=== PATIENT | female | born 1950 | race Caucasian/White ===

== ENCOUNTER 2020-05-15 15:59 | Inpatient (IN) | payer MEDICARE, OTHER ==
[~2020-05-15] VITALS: Ht 165.1 cm; Wt 81.2 kg
--- NOTE | 2020-05-15 16:00 | NUR ---
PT BIBA RA81 From Home "Cough/SOB/fever/chills/weak Dx w/covid 2wks ago 88% on RA". PT IS AAOX4, NOTED RESPIRATORY DISTRESS, HOOKED TO O2 VIA NC AT 6LPM, HOOKED TO FACE BURLER, KEPT RESTED AND COMFORTABLE. WILL CONTINUE TO MONITOR.
--- NOTE | 2020-05-15 16:05 | NUR ---
AT BEDSIDE FOR EVAL.
--- NOTE | 2020-05-15 16:10 | NUR ---
IV LINE ESTABLISHED BLOOD DRAWN AND SENT TO LAB.
--- NOTE | 2020-05-15 16:23 | NUR ---
[place] [facility] AT BEDSIDE FOR XRAY.
[2020-05-15] MEDS ORDERED: CEFTRIAXONE 1GM BAG (ER ONLY) 50 ML IV ONE (16:24)
[2020-05-15] MEDS ORDERED: DEXAMETHASONE SOD PHOSPHATE 10 MG/ML VIAL ONE (16:24)
[2020-05-15] MEDS ORDERED: CEFTRIAXONE 1 G in IV D5W 50 ML IV ONE (16:30)
[2020-05-15] MEDS ORDERED: AZITHROMYCIN 500 MG in IV D5W 250 ML IV ONE (16:30)
[2020-05-15] MEDS ORDERED: DEXAMETHASONE SOD PHOSPHATE 10 MG/ML VIAL IV ONE (16:30)
[2020-05-15 16:35] LABS: BASOPHILS % (AUTO) 0.1 % (0.0-2.0); HEMATOCRIT 41 % (33-45); HEMOGLOBIN 13.8 g/dL (11.5-14.8); LYMPHOCYTES # (AUTO) 0.8 /CMM (0.8-4.8); LYMPHOCYTES % (AUTO) 6.3 % (20.0-44.0); MEAN CORPUSCULAR HGB CONC 34 g/dl (31.0-36.0); MEAN CORPUSCULAR VOLUME 90 fL (82-100); MONOCYTES # (AUTO) 0.7 /CMM (0.1-1.30); MONOCYTES % (AUTO) 5.3 % (2.0-12.0); NEUTROPHILS # (AUTO) 11.6 /CMM (1.8-8.9); NEUTROPHILS % (AUTO) 88.3 % (43.0-81.0); PLATELET COUNT (AUTO) 283 /CMM (150-450); RED BLOOD CELL COUNT(AUTO) 4.54 MIL/uL (4.0-5.2); WHITE BLOOD COUNT (AUTO) 13.2 K/uL (4.3-11.0)
[2020-05-15] MEDS ORDERED: AMLO-213 PO (16:36)
[2020-05-15] MEDS ORDERED: LOSA1TAB15 PO (16:36)
[2020-05-15 16:53] LABS: ABG BASE EXCESS -4.4 mmol/L; ABG OXYGEN SATURATION 92.6 % (92.0-98.5); ABG PCO2 22.3 mmHg (35.0-45.0); ABG PH 7.494 (7.350-7.450); ABG PO2 63.6 mmHg (75.0-100.0); AaDO2 210.3 mmHg; COHb 0.5 % (0.5-1.5); MetHb 0.3 % (0.0-1.5); O2Hb 91.9 % (94.0-97.0); SITE, ABG Right Radial; VENT MODE, BG Nasal Cannula
[2020-05-15 17:00] LABS: CALCIUM, SERUM 8.4 mg/dL (8.5-10.1); CARBON DIOXIDE 22 mmol/L (21-32); CHLORIDE 100 mmol/L (98-107); GLUCOSE 141 mg/dL (74-106); SODIUM SERUM 135 mmol/L (136-145); UREA NITROGEN, BLOOD 18 mg/dL (7-18)
[2020-05-15 17:01] LABS: CREATINE KINASE, TOTAL 75 U/L (26-192); FERRITIN 820 ng/mL (8-388)
--- NOTE | 2020-05-15 17:02 | NUR ---
COVID SPECIMEN OBTAINED AND SENT TO LAB.
[2020-05-15 17:06] LABS: ALANINE AMINOTRANSFERASE 73 U/L (12-78); ALBUMIN 2.4 g/dL (3.4-5.0); ALKALINE PHOSPHATASE 24 U/L (46-116); ASPARTATE AMINOTRANSFERASE 55 U/L (15-37); BILIRUBIN,DIRECT 0.1 mg/dL (0.0-0.2); BILIRUBIN,TOTAL 0.5 mg/dL (0.2-1.0); TOTAL PROTEIN, SERUM 7.1 g/dL (6.4-8.2)
[2020-05-15 17:50] LABS: D-DIMER 1.61 mg/L(FEU (0.17-0.50)
--- NOTE | 2020-05-15 18:01 | NUR ---
received a call from the lab regarding covid 19 result "positive". notified
[2020-05-15] MEDS ORDERED: IV NS 0.9% 250 ML IV ONE (18:14)
[2020-05-15] MEDS ORDERED: IOHEXOL-350 100 ML VIAL IV ONE (18:14)
--- NOTE | 2020-05-15 18:20 | NUR ---
PT IS WHEELED TO CT SCAN ELISABETH PYLE.
[2020-05-15] MEDS ORDERED: MAG HYDROX/AL HYDROX/SIMETH 30 ML UDC PO PRN (19:00)
[2020-05-15] MEDS ORDERED: Z GUARD REMEDY 2 OZ OINT TP PRN (19:00)
[2020-05-15] MEDS ORDERED: HYDROCODONE/APAP 5/325MG TABLET PO PRN (19:00)
[2020-05-15] MEDS ORDERED: ZOLPIDEM TARTRATE 5 MG TABLET PO PRN (19:00)
[2020-05-15] MEDS ORDERED: ONDANSETRON HCL/PF 4 MG/2 ML VIAL IVP PRN (19:00)
[2020-05-15] MEDS ORDERED: MAGNESIUM HYDROXIDE 30 ML UDC PO PRN (19:00)
[2020-05-15] MEDS ORDERED: ACETAMINOPHEN 325 MG TABLET PO PRN (19:00)
--- NOTE | 2020-05-15 19:28 | NUR ---
Craig hernandes in [facility] - 05/15/20 at 1928 by FLOYD TOOK OVER PT CARE. PT REMAINS ON HIGH FLOW 40L/MIN 31C. WILL CONTINUE TO MONITOR.
--- NOTE | 2020-05-15 19:29 | NUR ---
TOOK OVER PT CARE. PT REMAINS ON HIGH FLOW 40L/MIN 31C. WILL CONTINUE TO MONITOR.
[2020-05-15] MEDS ORDERED: LOSARTAN POTASSIUM 50 MG TABLET ONE (19:55)
[2020-05-15] MEDS ORDERED: AMLODIPINE BESYLATE 10 MG TABLET ONE (19:55)
[2020-05-15] MEDS ORDERED: REMDESIVIR (CHARGED) 200 MG, *LOADING DOSE 1 EA in IV NS 0.9% 210 ML IV ONE (20:00)
[2020-05-15] MEDS: AMLODIPINE BESYLATE 10 MG TABLET PO SCH (20:01)
[2020-05-15] MEDS: LOSARTAN POTASSIUM 50 MG TABLET PO SCH (20:01)
[2020-05-15] MEDS ORDERED: ENOXAPARIN SODIUM 40 MG/0.4 ML DISP.SYRIN SQ SCH (21:00)
[2020-05-15] MEDS ORDERED: ENOXAPARIN SODIUM 40 MG/0.4 ML DISP.SYRIN SQ ONE (21:30)
[2020-05-15 22:10] LABS: ABG BASE EXCESS -4.5 mmol/L; ABG OXYGEN SATURATION 93.8 % (92.0-98.5); ABG PCO2 25.4 mmHg (35.0-45.0); ABG PH 7.458 (7.350-7.450); ABG PO2 69.9 mmHg (75.0-100.0); AaDO2 617.7 mmHg; MetHb 0.4 % (0.0-1.5); O2Hb 93.4 % (94.0-97.0); SITE, ABG Right Radial; VENT MODE, BG HFNC 60L/100%
--- NOTE | 2020-05-15 22:13 | NUR ---
RT AT BEDSIDE. FIO2 CHANGED FROM 85% TO 100%. PT SAT 96%. VSS.
[2020-05-15 23:17] LABS: C-REACTIVE PROTEIN 40.1 mg/dL (0.0-0.9)
--- NOTE | 2020-05-16 01:11 | NUR ---
PT RESTING COMFORTABLY, VSS.
--- NOTE | 2020-05-16 04:05 | NUR ---
PT RESTING COMFORTABLY. VSS.
[2020-05-16 04:39] LABS: BASOPHILS % (AUTO) 0.1 % (0.0-2.0); HEMATOCRIT 39 % (33-45); HEMOGLOBIN 13.2 g/dL (11.5-14.8); LYMPHOCYTES # (AUTO) 0.7 /CMM (0.8-4.8); LYMPHOCYTES % (AUTO) 8.4 % (20.0-44.0); MEAN CORPUSCULAR HGB CONC 34 g/dl (31.0-36.0); MEAN CORPUSCULAR VOLUME 90 fL (82-100); MONOCYTES # (AUTO) 0.5 /CMM (0.1-1.30); MONOCYTES % (AUTO) 5.7 % (2.0-12.0); NEUTROPHILS # (AUTO) 7.7 /CMM (1.8-8.9); NEUTROPHILS % (AUTO) 85.8 % (43.0-81.0); PLATELET COUNT (AUTO) 276 /CMM (150-450); RED BLOOD CELL COUNT(AUTO) 4.29 MIL/uL (4.0-5.2); WHITE BLOOD COUNT (AUTO) 8.9 K/uL (4.3-11.0)
[2020-05-16 05:03] LABS: B-TYPE NATRIURETIC PEPTIDE 300 PG/ML (0-125); CALCIUM, SERUM 8.5 mg/dL (8.5-10.1); CARBON DIOXIDE 23 mmol/L (21-32); CHLORIDE 102 mmol/L (98-107); CREATININE 0.9 mg/dL (0.6-1.3); GLUCOSE 146 mg/dL (74-106); MAGNESIUM 2.3 mg/dL (1.8-2.4); POTASSIUM 4.6 mmol/L (3.5-5.1); SODIUM SERUM 136 mmol/L (136-145); UREA NITROGEN, BLOOD 18 mg/dL (7-18)
[2020-05-16 05:10] LABS: CHOLESTEROL 179 mg/dL (<200); CREATINE KINASE, TOTAL 62 U/L (26-192); FERRITIN 824 ng/mL (8-388); HDL CHOLESTEROL 14 mg/dL (40-60); LDL 132 mg/dL (0-99); THYROID STIMULATING HORMONE 0.513 uIU/mL (0.358-3.74); TRIGLYCERIDES 165 mg/dL (30-150)
[2020-05-16 05:17] LABS: D-DIMER 1.3 mg/L(FEU (0.17-0.50)
--- NOTE | 2020-05-16 06:53 | NUR ---
PT PROVIDED WITH BED MORFIN, SAT 97%. VITALS STABLE.
--- NOTE | 2020-05-16 07:26 | NUR ---
ENDORSEMENT RECEIVED FROM DNEISE ALCAZAR FOR IRIS
[2020-05-16] MEDS: LOSARTAN POTASSIUM 50 MG TABLET PO SCH (09:00)
[2020-05-16] MEDS: AMLODIPINE BESYLATE 10 MG TABLET PO SCH (09:00)
[2020-05-16] MEDS ORDERED: DEXAMETHASONE SOD PHOSPHATE 10 MG/ML VIAL ONE (09:09)
[2020-05-16] MEDS: DEXAMETHASONE SOD PHOSPHATE 10 MG/ML VIAL IV SCH (09:18)
[2020-05-16 10:00] LABS: ALBUMIN 2.2 g/dL (3.4-5.0); BILIRUBIN,DIRECT 0.2 mg/dL (0.0-0.2); BILIRUBIN,TOTAL 0.4 mg/dL (0.2-1.0); TOTAL PROTEIN, SERUM 6.7 g/dL (6.4-8.2)
[2020-05-16] MEDS ORDERED: ENOXAPARIN SODIUM 40 MG/0.4 ML DISP.SYRIN SQ ONE (10:28)
--- NOTE | 2020-05-16 10:36 | NUR ---
RT AT BEDSIDE, REMOVED NRB, PATIENT O2 SAT ON HIHGFLOW O2 AT 60LPM AND 100% O2 AT 93%.
[2020-05-16] MEDS: ENOXAPARIN SODIUM 40 MG/0.4 ML DISP.SYRIN SQ SCH ×2 (10:39→17:10)
--- NOTE | 2020-05-16 11:09 | NUR ---
REPORT GIVEN TO CRISTIAN ALCAZAR OF [facility]
--- NOTE | 2020-05-16 12:10 | NUR ---
RN OPENING N0TES RECEIVED PT FROM ER VIA LASHANDA. AWAKE, A/O X4. HF 60L, FIO2 100% SATURATING @93%. WITH NON PRODUCTIVE COUGH. SKIN IS INTACT. IV ACCESS ON R AC #18 INTACT, PATENT AND FLUSHED. REFUSED TO CHANGE INTO HOSPITAL GOWN. BELONGINGS LIST SIGNED. NO PAIN REPORTED AT TIME. PLACED TO BED, LOCKED AND AT LOWEST POSITION. CALL LIGHT WITHIN REACH. HOB ELEVATED. BED ALARM ON. WILL CONTINUE TO MONITOR.
[2020-05-16 12:30] VITALS: BP 132/93
[2020-05-16 16:00] VITALS: BP 125/79
[2020-05-16] MEDS ORDERED: CEFTRIAXONE 1 G in IV D5W 50 ML IV SCH (16:00)
[2020-05-16] MEDS ORDERED: AZITHROMYCIN 500 MG in IV D5W 250 ML IV SCH (17:00)
--- NOTE | 2020-05-16 18:51 | NUR ---
RN CLOSING N0TES PT RESTING IN BED. HF 60L, FIO2 100% SATURATING @93%. WITH NON PRODUCTIVE COUGH. SKIN IS INTACT. IV ACCESS INTACT, PATENT AND FLUSHED. NO PAIN REPORTED AT TIME. NEEDS ATTENDED. NO SIGNIFICANT CHANGES. SAFETY MEAUSRES IN PLACE, BED LOCKED AND AT LOWEST POSITION. CALL LIGHT WITHIN REACH. HOB ELEVATED. BED ALARM ON. WILL ENDORSE TO NIGHT NURSE FOR IRIS.
[2020-05-16 19:05] LABS: C-REACTIVE PROTEIN 26.5 mg/dL (0.0-0.9)
--- NOTE | 2020-05-16 19:30 | NUR ---
RECEIVED PATIENT IN BED, A/OX4 BREATHING EVEN AND UNLABORED,ABLE TO VERBALIZED NEEDS ON NON - REBREATHER MASK AND HIGH FLOW NC, 60L, 100%FIO2, SPO2 IS 93%, , NORMAL SINUS RHYTHM ON TELE-MONITOR WITH HR 60-80S, RIGHT AC IV LINES PATENT ,INTACT AND FLUSHED , SAFETY MEASURES IN PLACE, CALL LIGHT IN REACH, HOB ELEVATED, WILL CONT TO MONITOR .
[2020-05-16] MEDS: REMDESIVIR (CHARGED) 100 MG in IV NS 0.9% 100 ML IV SCH (19:57)
[2020-05-16 20:00] VITALS: BP 129/75
[2020-05-16] MEDS ORDERED: REMDESIVIR (CHARGED) 100 MG in IV NS 0.9% 230 ML IV SCH (20:00)
--- NOTE | 2020-05-16 20:10 | NUR ---
PT COMPLAINING OF HEADACHE DUE TO HIGH OXYGEN DELIVERY FROM THE HIGH FLOW INFORMED RT AND WE LOWER IT DOWN TO 35L FIO2 100% VIA HIGH FLOW SPO2 NOW IS 92% SHE VERBALIZED THAT ITS MORE COMFORTABLE NOW WILL CONT TO MONITOR THE PT
--- NOTE | 2020-05-16 23:00 | NUR ---
PT IS COUGHING A LOT REPORTED IT TO CORBIN MORA SKI LIFT ATTENDANT WITH ORDER OF ROBITUSSIN 10CC Q6PRN NOTED AND CARRIED OUT
[2020-05-17] VITALS: BP 131/77
[2020-05-17] MEDS: GUAIFENESIN/CODEINE 10 ML UDC PO PRN ×2 (03:34→16:52)
[2020-05-17 04:00] VITALS: BP 128/75
--- NOTE | 2020-05-17 06:54 | NUR ---
PT ON BED ASLEEP EASY TO WAKE UP A/O X3 STILL ON HIGH FLOW 35L 100% FIO2 AND NON REBREATHER MASK 15L WITH SPO2 97% NO DISTRESS NOTED NO PAIN COMPLAINED NO SIGNIFICANT CHANGES ON CONDITION NOTED ALL NEEDS ATTENDED BED ON LOWEST POSITION AND LOCKED SIDE RAILS UP X2 CALL LIGHT WITHIN REACH WILL ENDORSED TO AM SHIFT NURSE
[2020-05-17 07:01] LABS: HEMATOCRIT 39 % (33-45); HEMOGLOBIN 13.4 g/dL (11.5-14.8); LYMPHOCYTES # (AUTO) 0.7 /CMM (0.8-4.8); LYMPHOCYTES % (AUTO) 7.1 % (20.0-44.0); MEAN CORPUSCULAR HGB CONC 35 g/dl (31.0-36.0); MEAN CORPUSCULAR VOLUME 90 fL (82-100); MONOCYTES # (AUTO) 0.9 /CMM (0.1-1.30); NEUTROPHILS # (AUTO) 8.5 /CMM (1.8-8.9); NEUTROPHILS % (AUTO) 83.9 % (43.0-81.0); PLATELET COUNT (AUTO) 320 /CMM (150-450); RED BLOOD CELL COUNT(AUTO) 4.27 MIL/uL (4.0-5.2); WHITE BLOOD COUNT (AUTO) 10.1 K/uL (4.3-11.0)
[2020-05-17 07:12] LABS: ALBUMIN 2.2 g/dL (3.4-5.0); BILIRUBIN,DIRECT 0.1 mg/dL (0.0-0.2); BILIRUBIN,TOTAL 0.4 mg/dL (0.2-1.0); CALCIUM, SERUM 8.7 mg/dL (8.5-10.1); CREATININE 0.9 mg/dL (0.6-1.3); MAGNESIUM 2.5 mg/dL (1.8-2.4); POTASSIUM 4.5 mmol/L (3.5-5.1); TOTAL PROTEIN, SERUM 6.7 g/dL (6.4-8.2)
--- NOTE | 2020-05-17 07:30 | NUR ---
RN OPENING NOTE: PATIENT RECEIVED IN ROOM IN NO SIGNS OF RESPIRATORY DISTRESS. PATIENT IS ON O2 THERAPY VIA HFNC 35 LPM 100% + NRB 15 LPM TOLERATING WELL. IV ACCESS MAINTAINED INTACT, SECURED AND FLUSHING WELL. ISOLATION PRECAUTIONS MAINTAINED. SAFETY MEASURES IMPLEMENTED, BED LOCKED IN LOWEST POSITION, SIDE RAILS UP, CALL LIGHT WITHIN REACH. WILL CONTINUE TO MONITOR PATIENT AND PROVIDE CARE THROUGHOUT SHIFT.
[2020-05-17 08:00] VITALS: BP 104/62
[2020-05-17] MEDS: AMLODIPINE BESYLATE 10 MG TABLET PO SCH (09:00)
[2020-05-17] MEDS: LOSARTAN POTASSIUM 50 MG TABLET PO SCH (09:00)
[2020-05-17] MEDS: DEXAMETHASONE SOD PHOSPHATE 10 MG/ML VIAL IV SCH (10:10)
[2020-05-17] MEDS: ENOXAPARIN SODIUM 40 MG/0.4 ML DISP.SYRIN SQ SCH ×2 (10:40→16:46)
[2020-05-17 10:53] LABS: CREATINE KINASE, TOTAL 50 U/L (26-192)
--- NOTE | 2020-05-17 11:34 | NUR ---
patient care transferred over to other staff. report given to ariadne.
--- NOTE | 2020-05-17 11:34 | NUR ---
TELE/RN NOTE Received patient resting in bed, A&O x 4, easily arousable to tactile and verbal stimulation. No s/s of pain/discomfort at this time. Breathing even and non-labored on RA, no SOB noted. No respiratory or cardiac distress noted. On tele monitor, reading SR 85. IV access noted on RAC #18, patent and intact, and flushing well. Bed locked to its lowest position, side rails x 2 up, bed alarm on. Will continue with current medical management. Addendum: 05/17/20 at 1846 by TARAN HONG RN CORRECTION: Breathing even and non-labored on HFNC 35 L FIO2 100% + 15 L NRB, saturating 91%.
[2020-05-17 12:00] VITALS: BP 124/70
[2020-05-17 13:11] LABS: FERRITIN 927 ng/mL (8-388)
[2020-05-17 16:00] VITALS: BP 139/78
--- NOTE | 2020-05-17 16:52 | NUR ---
TELE/RN NOTE Administered robitussin PRN as ordered for persistent dry cough.
--- NOTE | 2020-05-17 18:44 | NUR ---
TELE/RN CLOSING NOTE Patient watching TV in bed, A&O x 4, easily arousable to tactile and verbal stimulation. All needs met and attended to. No s/s of pain/discomfort at this time. Breathing even and non-labored on HFNC 35 L FIO2 100% + 15 L NRB, saturating 91-93%. No respiratory or cardiac distress noted. On tele monitor, reading SR 74. IV access noted on RAC #18, patent and intact, and flushing well. Fall precautions maintained. Will endorse to sales representative printing supplies nurse.
[2020-05-17 20:00] VITALS: BP 121/72
[2020-05-17] MEDS: REMDESIVIR (CHARGED) 100 MG in IV NS 0.9% 100 ML IV SCH (20:32)
[2020-05-18] VITALS: BP 118/55
[2020-05-18 04:00] VITALS: BP 138/80
[2020-05-18 07:22] LABS: BASOPHILS % (AUTO) 0.1 % (0.0-2.0); EOSINOPHILS % (AUTO) 0.4 % (0.0-6.0); HEMATOCRIT 40 % (33-45); HEMOGLOBIN 13.5 g/dL (11.5-14.8); LYMPHOCYTES # (AUTO) 0.9 /CMM (0.8-4.8); LYMPHOCYTES % (AUTO) 9.8 % (20.0-44.0); MEAN CORPUSCULAR HGB CONC 34 g/dl (31.0-36.0); MEAN CORPUSCULAR VOLUME 91 fL (82-100); MONOCYTES # (AUTO) 0.7 /CMM (0.1-1.30); MONOCYTES % (AUTO) 8.1 % (2.0-12.0); NEUTROPHILS # (AUTO) 7.3 /CMM (1.8-8.9); NEUTROPHILS % (AUTO) 81.6 % (43.0-81.0); PLATELET COUNT (AUTO) 333 /CMM (150-450)
--- NOTE | 2020-05-18 07:30 | NUR ---
CHAIN TENDER NOTES PT IN BED, AWAKE, ALERT AND ORIENTED, NO COMPLAINT OF PAIN OR ANY DISCOMFORT, NOT IN DISTRESS, CALL LIGHT WITHIN REACH, NEEDS ATTENDED.
[2020-05-18 07:58] LABS: ALBUMIN 2.3 g/dL (3.4-5.0); BILIRUBIN,DIRECT 0.1 mg/dL (0.0-0.2); BILIRUBIN,TOTAL 0.4 mg/dL (0.2-1.0); CALCIUM, SERUM 8.6 mg/dL (8.5-10.1); POTASSIUM 4.4 mmol/L (3.5-5.1); TOTAL PROTEIN, SERUM 6.8 g/dL (6.4-8.2)
[2020-05-18 08:00] VITALS: BP 133/70
[2020-05-18 08:09] LABS: C-REACTIVE PROTEIN 9.8 mg/dL (0.0-0.9)
[2020-05-18] MEDS: DEXAMETHASONE SOD PHOSPHATE 10 MG/ML VIAL IV SCH (08:26)
[2020-05-18] MEDS: AMLODIPINE BESYLATE 10 MG TABLET PO SCH (08:26)
[2020-05-18] MEDS: LOSARTAN POTASSIUM 50 MG TABLET PO SCH (08:26)
[2020-05-18] MEDS: ENOXAPARIN SODIUM 40 MG/0.4 ML DISP.SYRIN SQ SCH ×2 (08:34→16:07)
[2020-05-18] MEDS: GUAIFENESIN/CODEINE 10 ML UDC PO PRN (10:19)
[2020-05-18 12:00] VITALS: BP 121/69
--- NOTE | 2020-05-18 12:00 | NUR ---
PROCESS IMPROVEMENT SPECIALIST NOTES PT IN BED, RESTING, EASY TO AROUSE, ALERT AND ORIENTED, NO COMPLAINT AT THIS TIME, CALL LIGHT WITHIN REACH.
[2020-05-18 16:00] VITALS: BP 105/58
--- NOTE | 2020-05-18 18:30 | NUR ---
SEO CONSULTANT NOTES PT IN BED, RESTING, NO COMPLAINT OF PAIN OR ANY DISCOMFORT, NO SOB NOTED, ON HIGH FLOW O2 WITH NRB MASK, WITH O2 SAT OF 95%, PM MEDS GIVEN, OFFERED PM CARE BUT PT REFUSED, STATED THAT SHE IS OK FOR NOW, CALL LIGHT WITHIN EASY REACH.
[2020-05-18 20:00] VITALS: BP 106/55
[2020-05-18] MEDS: REMDESIVIR (CHARGED) 100 MG in IV NS 0.9% 100 ML IV SCH (20:04)
[2020-05-19] VITALS: BP 122/68
[2020-05-19 04:00] VITALS: BP 110/69
[2020-05-19 07:09] LABS: BASOPHILS % (AUTO) 0.1 % (0.0-2.0); EOSINOPHILS % (AUTO) 1.1 % (0.0-6.0); HEMATOCRIT 38 % (33-45); HEMOGLOBIN 12.9 g/dL (11.5-14.8); LYMPHOCYTES # (AUTO) 0.7 /CMM (0.8-4.8); LYMPHOCYTES % (AUTO) 10.1 % (20.0-44.0); MEAN CORPUSCULAR HGB CONC 34 g/dl (31.0-36.0); MEAN CORPUSCULAR VOLUME 91 fL (82-100); MONOCYTES # (AUTO) 0.6 /CMM (0.1-1.30); MONOCYTES % (AUTO) 8.1 % (2.0-12.0); NEUTROPHILS # (AUTO) 5.7 /CMM (1.8-8.9); NEUTROPHILS % (AUTO) 80.6 % (43.0-81.0); PLATELET COUNT (AUTO) 312 /CMM (150-450); RED BLOOD CELL COUNT(AUTO) 4.17 MIL/uL (4.0-5.2)
--- NOTE | 2020-05-19 07:46 | NUR ---
PT RECEIVED IN BED, SLEEPING BUT EASILY AROUSABLE. O2 SAT 95% NO SOB ON 35L/100% HF + 15L NRB. PT IS ALERT AND ORIENTEDX4. PT SKIN INTACT, BEDREST. PT RAC #18 HL. ALL SAFETY MEASURES IN PLACE. WILL CONTINUE TO MONITOR
[2020-05-19 08:00] VITALS: BP 113/60
[2020-05-19] MEDS: DEXAMETHASONE SOD PHOSPHATE 10 MG/ML VIAL IV SCH (08:00)
[2020-05-19] MEDS: LOSARTAN POTASSIUM 50 MG TABLET PO SCH (08:01)
[2020-05-19] MEDS: AMLODIPINE BESYLATE 10 MG TABLET PO SCH (08:01)
[2020-05-19] MEDS: ENOXAPARIN SODIUM 40 MG/0.4 ML DISP.SYRIN SQ SCH ×2 (08:02→17:34)
[2020-05-19 08:11] LABS: BILIRUBIN,DIRECT 0.1 mg/dL (0.0-0.2); BILIRUBIN,TOTAL 0.4 mg/dL (0.2-1.0); CALCIUM, SERUM 8.5 mg/dL (8.5-10.1); CREATININE 1.1 mg/dL (0.6-1.3); POTASSIUM 4.7 mmol/L (3.5-5.1); TOTAL PROTEIN, SERUM 6.2 g/dL (6.4-8.2)
--- NOTE | 2020-05-19 10:53 | NUR ---
15L NRB REMOVED BY RT. PT SAT 86-89%. RT AWARE AND ADJUST HF TO 35L/90% WITH NO MASK. O2 SAT NOW 94-05%.
[2020-05-19 12:00] VITALS: BP 95/46
--- NOTE | 2020-05-19 13:16 | NUR ---
PT ABLE TO PIVOT FROM BED TO CHAIR PT AND FAMILY REQUESTED, O2 SAT REMAINS UNCHANGED. PT THEN FOUND TO BE HYPOTENSIVE WITH BP 78/48 SITTING. PT STATES SHE NOW FEELS DIZZY. PT TRANSFERRED BACK TO BED, BP RECHECKED WITH PT SUPINE 95/46, PT INSTRUCTED TO REMAIN BEDREST, AND ENCOURAGED TO DRINK MORE FLUIDS AND EAT MEALS. Addendum: 05/19/20 at 1319 by RYNE HUMMEL RN MD LANDEROS AWARE, NO FURTHER ORDERS
[2020-05-19] MEDS: GUAIFENESIN/CODEINE 10 ML UDC PO PRN ×2 (14:24→20:18)
--- NOTE | 2020-05-19 15:15 | NUR ---
PT HF ADJUSTED TO 30L/75% FIO2, NO NRB MASK, PER RT DAVIDA
[2020-05-19 16:00] VITALS: BP 103/54
--- NOTE | 2020-05-19 18:32 | NUR ---
PT REMAINS IN BED ON HF 30L/75%. PT AOX4. NO NRB MASK. PT O2 SAT 94% NO SIGNS OF RESPIRATORY DISTRESS. PT THIS SHIFT CONSUMED APPROX LESS THAN 50% BREAKFAST, 10% LUNCH/DINNER. MD LANDEROS ORDERS ENSURE WITH MEALS PER PT REQUEST. PT HAS RAC #18 IV HL. PT HAD ONE DOSE ROBITUSSIN FOR COUGH AT 1430. PT HAD 2X VOIDS ON BEDPAN, NO BM THIS SHIFT. ALL SAFETY MEASURES IN [place]. ALL NEEDS TO BE ENDORSED TO ONCOMING RN
--- NOTE | 2020-05-19 19:50 | NUR ---
RN NOTE RECEIVED PT IN BED A/A/O X3. PT IS ON HIGH FLOW 30L, 75% FIO2. NO SOB NOTED, PT IS ON TELE MONITOR SHOWING SR IN 60s. SAFETY MEASURES IN PLACE.
[2020-05-19 20:00] VITALS: BP_SYST 106; BP_SYST 125; BP_DIAS 60; BP_DIAS 65
[2020-05-19] MEDS: REMDESIVIR (CHARGED) 100 MG in IV NS 0.9% 100 ML IV SCH (20:13)
[2020-05-20] VITALS (9 sets, daily range): BP systolic 93–129; BP diastolic 54–73
[2020-05-20 07:07] LABS: BASOPHILS % (AUTO) 0.4 % (0.0-2.0); EOSINOPHILS % (AUTO) 0.8 % (0.0-6.0); HEMATOCRIT 36 % (33-45); HEMOGLOBIN 12.2 g/dL (11.5-14.8); LYMPHOCYTES # (AUTO) 0.9 /CMM (0.8-4.8); LYMPHOCYTES % (AUTO) 10.3 % (20.0-44.0); MEAN CORPUSCULAR HGB CONC 34 g/dl (31.0-36.0); MEAN CORPUSCULAR VOLUME 90 fL (82-100); MONOCYTES # (AUTO) 0.5 /CMM (0.1-1.30); MONOCYTES % (AUTO) 6.4 % (2.0-12.0); NEUTROPHILS # (AUTO) 6.8 /CMM (1.8-8.9); NEUTROPHILS % (AUTO) 82.1 % (43.0-81.0); PLATELET COUNT (AUTO) 302 /CMM (150-450); RED BLOOD CELL COUNT(AUTO) 3.96 MIL/uL (4.0-5.2); WHITE BLOOD COUNT (AUTO) 8.3 K/uL (4.3-11.0)
--- NOTE | 2020-05-20 07:25 | NUR ---
RN NOTE NO ACUTE CHANGES. PT REMAINED STABLE REPORT GIVEN TO INCOMING SHIFT FOR IRIS.
[2020-05-20 07:58] LABS: ALBUMIN 1.9 g/dL (3.4-5.0); BILIRUBIN,DIRECT 0.1 mg/dL (0.0-0.2); BILIRUBIN,TOTAL 0.4 mg/dL (0.2-1.0); CALCIUM, SERUM 8.3 mg/dL (8.5-10.1); CREATININE 0.9 mg/dL (0.6-1.3); POTASSIUM 4.7 mmol/L (3.5-5.1)
[2020-05-20] MEDS: DEXAMETHASONE SOD PHOSPHATE 10 MG/ML VIAL IV SCH (08:29)
--- NOTE | 2020-05-20 08:30 | NUR ---
OUTSIDE SALES ASSOCIATE NOTES PATIENT RECEIVED FROM RN, PATIENT IN BED AT THIS TIME, ALERT AND ORIENTED X 4, TURKISH SPEAKING. ON HIGH FLOW NASAL CANNULA. ON PACKAGING ASSOCIATE. IV ACCESS INTACT AND PATENT, SALINE FLUSH. PATIENT DENIES ANY PAIN OR DISCOMFORT AT THIS TIME. SAFETY PRECAUTIONS IMPLEMENTED WITH BED LOCKED, BILATERAL SIDE RAILS UP, BED ALARM ON, BED IN THE LOWEST POSITION AND CALL LIGHT WITHIN EASY REACH. WILL CONTINUE TO MONITOR.
[2020-05-20] MEDS: ENOXAPARIN SODIUM 40 MG/0.4 ML DISP.SYRIN SQ SCH ×2 (08:31→16:14)
[2020-05-20] MEDS: LOSARTAN POTASSIUM 50 MG TABLET PO SCH (08:38)
[2020-05-20] MEDS: AMLODIPINE BESYLATE 10 MG TABLET PO SCH (08:39)
[2020-05-20] MEDS: ENSURE ENLIVE 237 ML LIQUID (VANILLA) PO SCH ×3 (09:39→17:18)
--- NOTE | 2020-05-20 11:15 | NUR ---
TRUSS DESIGNER NOTES INFORMED DR. ANTUNEZ, HOSPITALIST ABOUT PATIENTS BLOOD PRESSURE BEING ON THE LOWER SIDE AND INFORMED HELD BLOOD PRESSURE MEDS WHICH WERE SCHEDULE THIS MORNING. NO NEW ORDERS MADE AT THIS TIME. WILL CONTINUE TO MONITOR PATIENT.
--- NOTE | 2020-05-20 18:53 | NUR ---
SENIOR BACK END JAVA DEVELOPER NOTES PATIENT IN BED AT THIS TIME RESTING COMFORTABLY, ALERT AND ORIENTED X 4, WELSH SPEAKING. ON HIGH FLOW NASAL CANNULA 30 LITERS. ON ELECTROENCEPHALOGRAPH TECHNOLOGIST. IV ACCESS INTACT AND PATENT, SALINE FLUSH. SKIN KEPT CLEAN AND DRY. MET ALL OF PATIENT'S NEEDS. PATIENT DENIES ANY PAIN OR DISCOMFORT AT THIS TIME. SAFETY PRECAUTIONS IMPLEMENTED WITH BED LOCKED, BILATERAL SIDE RAILS UP, BED ALARM ON, BED IN THE LOWEST POSITION AND CALL LIGHT WITHIN EASY REACH. WILL ENDORSE PLAN OF CARE TO UPCOMING RN.
--- NOTE | 2020-05-20 20:00 | NUR ---
RN NOTE RECEIVED PT IN BED A/A/O X3. ON HIGH FLOW 30 L WITH FIO2 65%,SATING 95%. PT ON TELE MONITOR SHOWING SR WITH HR IN 50s. SAFETY MEASURES IN PLACE.
[2020-05-21] VITALS (8 sets, daily range): BP systolic 99–138; BP diastolic 51–79
--- NOTE | 2020-05-21 07:18 | NUR ---
MS/RN OPENING NOTE RECEIVED PATIENT FROM ROPEMAN NURSE PATIENT A/O X4. PATIENT IN BED AWAKE. NO ACUTE DISTRESS NOTED. ALL SAFETY MEASURES IN PLACE WILL CONTINUE TO MONITOR AND ENSURE SAFETY.
--- NOTE | 2020-05-21 07:29 | NUR ---
RN NOTE NO ACUTE CHANGES DURING MY SHIFT, REPORT GIVEN TO INCOMUNG SHIFT FOR IRIS.
[2020-05-21 08:36] LABS: BASOPHILS % (AUTO) 0.3 % (0.0-2.0); EOSINOPHILS % (AUTO) 0.8 % (0.0-6.0); HEMATOCRIT 38 % (33-45); HEMOGLOBIN 12.9 g/dL (11.5-14.8); LYMPHOCYTES # (AUTO) 0.9 /CMM (0.8-4.8); LYMPHOCYTES % (AUTO) 11.6 % (20.0-44.0); MEAN CORPUSCULAR HGB CONC 34 g/dl (31.0-36.0); MEAN CORPUSCULAR VOLUME 91 fL (82-100); MONOCYTES # (AUTO) 0.6 /CMM (0.1-1.30); MONOCYTES % (AUTO) 7.7 % (2.0-12.0); NEUTROPHILS # (AUTO) 5.9 /CMM (1.8-8.9); NEUTROPHILS % (AUTO) 79.6 % (43.0-81.0); PLATELET COUNT (AUTO) 330 /CMM (150-450); RED BLOOD CELL COUNT(AUTO) 4.22 MIL/uL (4.0-5.2); WHITE BLOOD COUNT (AUTO) 7.4 K/uL (4.3-11.0)
[2020-05-21 08:49] LABS: CALCIUM, SERUM 8.2 mg/dL (8.5-10.1); CREATININE 0.9 mg/dL (0.6-1.3); MAGNESIUM 2.2 mg/dL (1.8-2.4); PHOSPHORUS 2.9 mg/dL (2.5-4.9); POTASSIUM 4.5 mmol/L (3.5-5.1)
[2020-05-21] MEDS: DEXAMETHASONE SOD PHOSPHATE 10 MG/ML VIAL IV SCH (08:54)
[2020-05-21] MEDS: LOSARTAN POTASSIUM 50 MG TABLET PO SCH (08:55)
[2020-05-21] MEDS: AMLODIPINE BESYLATE 10 MG TABLET PO SCH (08:56)
[2020-05-21] MEDS: ENOXAPARIN SODIUM 40 MG/0.4 ML DISP.SYRIN SQ SCH ×2 (08:57→17:39)
[2020-05-21] MEDS: ENSURE ENLIVE 237 ML LIQUID (VANILLA) PO SCH ×3 (08:59→17:59)
[2020-05-21 09:07] LABS: CREATINE KINASE, TOTAL 28 U/L (26-192); FERRITIN 506 ng/mL (8-388)
[2020-05-21 17:32] LABS: C-REACTIVE PROTEIN 8.3 mg/dL (0.0-0.9)
--- NOTE | 2020-05-21 18:00 | NUR ---
MS/RN NOTE COVID TEST WAS TAKEN AND GIVEN TO LAB.
--- NOTE | 2020-05-21 19:00 | NUR ---
RN OPENING NOTE RECEIVED PATIENT IN BED RESTING ALERT ORIENTED X4 VERBALLY RESPONSIVE ABLE TO MAKE NEEDS KNOWN,ON MONITOR FOR COVID POSITIVE DROPLET/CONTACT ISOLATION,ON HIGH FLOW OXYGEN 30L FIO2:60% O2:92-93% IV SITE IS ON RIGHT AC INTACT PATENT,CONTINENT BOWEL/BLADDER CALL LIGHT WITHIN REACH,SAFETY MEASURE IMPLEMENT,CONTINUE TO MONITOR.
--- NOTE | 2020-05-21 19:45 | NUR ---
MS/RN OPENING NOTE PATIENT A/O X4. PATIENT AWAKE IN BED. NO ACUTE DISTRESS NOTED. ALL NEEDS THROUGHOUT THE SHIFT. ALL SAFETY MEASURES IN PLACE WILL ENDORSE TO JOY OPERATOR NURSE.
[2020-05-22] VITALS: BP 117/67
[2020-05-22 04:00] VITALS: BP 129/71
--- NOTE | 2020-05-22 06:30 | NUR ---
RN CLOSING NOTE PATIENT REMAINS ON ALERT ORIENTED X4 VERBALLY RESPONSIVE ON HIGH FLOW OXYGEN 30L FIO2:60% O2:97% NO SOB NOT ACUTE DISTRESS NOTED IV SITE IS ON RIGHT AC INTACT PATENT,KEPT CLEAN AND DRY ALL THE TIME,KEPT COMFORTABLE,KEPT CALL LIGHT WITHIN REACH,ENDORSE NEXT COMING SHIFT FOR CONTINUATION OF CARE.
[2020-05-22 06:36] LABS: BASOPHILS % (AUTO) 0.1 % (0.0-2.0); EOSINOPHILS % (AUTO) 0.7 % (0.0-6.0); HEMATOCRIT 37 % (33-45); HEMOGLOBIN 12.5 g/dL (11.5-14.8); LYMPHOCYTES % (AUTO) 14.2 % (20.0-44.0); MEAN CORPUSCULAR HGB CONC 34 g/dl (31.0-36.0); MEAN CORPUSCULAR VOLUME 90 fL (82-100); MONOCYTES # (AUTO) 0.6 /CMM (0.1-1.30); MONOCYTES % (AUTO) 9.2 % (2.0-12.0); NEUTROPHILS # (AUTO) 5.2 /CMM (1.8-8.9); NEUTROPHILS % (AUTO) 75.8 % (43.0-81.0); PLATELET COUNT (AUTO) 329 /CMM (150-450); RED BLOOD CELL COUNT(AUTO) 4.08 MIL/uL (4.0-5.2); WHITE BLOOD COUNT (AUTO) 6.9 K/uL (4.3-11.0)
[2020-05-22 06:51] LABS: CALCIUM, SERUM 8.4 mg/dL (8.5-10.1); MAGNESIUM 2.2 mg/dL (1.8-2.4); PHOSPHORUS 3.5 mg/dL (2.5-4.9)
--- NOTE | 2020-05-22 07:27 | NUR ---
MS/RN OPENING NOTE RECEIVED PATIENT FROM MEND WORKER NURSE PATIENT IS AWAKE IN BED A/O X4. DENIES ANY PAIN AT THIS TIME. NO ACUTE DISTRESS NOTED. HIFLO OXYGEN 30L FIO2 60% VIA NASAL CANNULA TOLERATING WELL, NO SOB NOTED. SAFETY MEASURES IN PLACE BED LOCKED AND IN LOWEST POSITION, CALL LIGHT WITHIN REACH. WILL CONTINUE TO MONITOR AND ENSURE SAFETY.
[2020-05-22] MEDS: ENSURE ENLIVE 237 ML LIQUID (VANILLA) PO SCH ×3 (07:59→17:04)
[2020-05-22 08:00] VITALS: BP 133/68
[2020-05-22] MEDS: LOSARTAN POTASSIUM 50 MG TABLET PO SCH (08:47)
[2020-05-22] MEDS: AMLODIPINE BESYLATE 10 MG TABLET PO SCH (08:47)
[2020-05-22] MEDS: DEXAMETHASONE SOD PHOSPHATE 10 MG/ML VIAL IV SCH (08:47)
[2020-05-22] MEDS: ENOXAPARIN SODIUM 40 MG/0.4 ML DISP.SYRIN SQ SCH ×2 (08:48→16:06)
[2020-05-22 12:05] VITALS: BP 114/56
--- NOTE | 2020-05-22 15:43 | NUR ---
MS/RN NOTE RT TITRATED FIO2 DOWN TO 50% PATIENT TOLERATING WELL WITH O2 SAT OF 93%
[2020-05-22 16:28] VITALS: BP 111/66
--- NOTE | 2020-05-22 18:37 | NUR ---
MS/RN CLOSING NOTE PATIENT IS AWAKE IN BED A/O X4. DENIES ANY PAIN AT THIS TIME. NO ACUTE DISTRESS NOTED. HIFLO OXYGEN 30L FIO2 50% VIA NASAL CANNULA TOLERATING WELL, NO SOB NOTED. ALL NEEDS MET THROUGHOUT THE SHIFT. SAFETY MEASURES IN PLACE BED LOCKED AND IN LOWEST POSITION, CALL LIGHT WITHIN REACH. WILL ENDORSE TO INSPECTOR PRECISION ASSEMBLY NURSE.
--- NOTE | 2020-05-22 19:20 | NUR ---
RN OPENING NOTE RECEIVED PATIENT IN BED RESTING ALERT ORIENTED X4 VERBALLY RESPONSIVE ABLE TO MAKE NEEDS KNOWN,ON MONITOR FOR COVID POSITIVE DROPLET/CONTACT ISOLATION,ON HIGH FLOW OXYGEN 30L FIO2:50% O2:94-95% IV SITE IS ON RIGHT AC INTACT PATENT,CONTINENT BOWEL/BLADDER CALL LIGHT WITHIN REACH,SAFETY MEASURE IMPLEMENT,BED IN LOW POSITION AND LOCKED,CONTINUE TO MONITOR.
[2020-05-22 20:00] VITALS: BP 102/60
[2020-05-23] VITALS: BP 136/61
[2020-05-23 04:00] VITALS: BP 139/65
--- NOTE | 2020-05-23 06:36 | NUR ---
RN CLOSING NOTE PATIENT REMAINS ON ALERT ORIENTED X4 VERBALLY RESPONSIVE NO SOB NOT ACUTE DISTRESS NOTED ON HIGH FLOW OXYGEN,30 L FIO2 50% O2:96%,IV SITE IS ON RIGHT AC INTACT PATENT,SAFETY MEASURE IMPLEMENTED,KEPT CLEAN AND DRY ALL THE TIME,KEPT COMFORTABLE,KEPT CALL LIGHT WITHIN REACH,ENDORSE NEXT COMING SHIFT FOR CONTINUATION OF CARE.
[2020-05-23 06:52] LABS: BASOPHILS % (AUTO) 0.3 % (0.0-2.0); EOSINOPHILS % (AUTO) 0.8 % (0.0-6.0); HEMATOCRIT 40 % (33-45); HEMOGLOBIN 13.4 g/dL (11.5-14.8); LYMPHOCYTES # (AUTO) 1.2 /CMM (0.8-4.8); LYMPHOCYTES % (AUTO) 15.2 % (20.0-44.0); MEAN CORPUSCULAR HGB CONC 33 g/dl (31.0-36.0); MEAN CORPUSCULAR VOLUME 91 fL (82-100); MONOCYTES # (AUTO) 0.9 /CMM (0.1-1.30); MONOCYTES % (AUTO) 11.5 % (2.0-12.0); NEUTROPHILS # (AUTO) 5.6 /CMM (1.8-8.9); NEUTROPHILS % (AUTO) 72.2 % (43.0-81.0); PLATELET COUNT (AUTO) 339 /CMM (150-450); RED BLOOD CELL COUNT(AUTO) 4.42 MIL/uL (4.0-5.2); WHITE BLOOD COUNT (AUTO) 7.8 K/uL (4.3-11.0)
[2020-05-23 07:30] LABS: CALCIUM, SERUM 8.6 mg/dL (8.5-10.1); POTASSIUM 5.1 mmol/L (3.5-5.1)
--- NOTE | 2020-05-23 07:30 | NUR ---
ms rn received on bed, awake,alert,oriented x4,not in any form of distres, patient on high flow o2, saturating well. denies pain at this time, will monitor patient.
[2020-05-23 08:00] VITALS: BP 94/38
[2020-05-23] MEDS: AMLODIPINE BESYLATE 10 MG TABLET PO SCH (09:00)
[2020-05-23] MEDS: LOSARTAN POTASSIUM 50 MG TABLET PO SCH (09:00)
--- NOTE | 2020-05-23 09:00 | NUR ---
ms soria breakfast served,due meds given, tolerated well.
[2020-05-23] MEDS: DEXAMETHASONE SOD PHOSPHATE 10 MG/ML VIAL IV SCH (09:29)
[2020-05-23] MEDS: ENOXAPARIN SODIUM 40 MG/0.4 ML DISP.SYRIN SQ SCH ×2 (09:31→18:13)
[2020-05-23] MEDS: ENSURE ENLIVE 237 ML LIQUID (VANILLA) PO SCH ×3 (09:39→18:13)
[2020-05-23 16:00] VITALS: BP 106/63
--- NOTE | 2020-05-23 19:00 | NUR ---
ms rn on bed, no distress noted,all needs attended.
--- NOTE | 2020-05-23 19:30 | NUR ---
RECEIVED PATIENT IN BED, A/OX4 BREATHING EVEN AND UNLABORED,ABLE TO VERBALIZED NEEDS ON HIGH FLOW NC, 30L, 40%FIO2, SPO2 IS 93%, , NORMAL SINUS RHYTHM ON TELE-MONITOR WITH HR 60-80S, RIGHT AC IV LINES PATENT ,INTACT AND FLUSHED , SAFETY MEASURES IN PLACE, CALL LIGHT IN REACH, HOB ELEVATED, WILL CONT TO MONITOR .
[2020-05-23 20:00] VITALS: BP 115/60
[2020-05-24] VITALS: BP 141/76
[2020-05-24 04:00] VITALS: BP 117/67
[2020-05-24 06:04] LABS: BASOPHILS % (AUTO) 0.2 % (0.0-2.0); EOSINOPHILS % (AUTO) 0.5 % (0.0-6.0); HEMATOCRIT 38 % (33-45); HEMOGLOBIN 12.7 g/dL (11.5-14.8); LYMPHOCYTES # (AUTO) 1.2 /CMM (0.8-4.8); LYMPHOCYTES % (AUTO) 13.9 % (20.0-44.0); MEAN CORPUSCULAR HGB CONC 34 g/dl (31.0-36.0); MEAN CORPUSCULAR VOLUME 90 fL (82-100); MONOCYTES # (AUTO) 0.9 /CMM (0.1-1.30); MONOCYTES % (AUTO) 10.1 % (2.0-12.0); NEUTROPHILS # (AUTO) 6.5 /CMM (1.8-8.9); NEUTROPHILS % (AUTO) 75.3 % (43.0-81.0); PLATELET COUNT (AUTO) 294 /CMM (150-450); RED BLOOD CELL COUNT(AUTO) 4.19 MIL/uL (4.0-5.2); WHITE BLOOD COUNT (AUTO) 8.6 K/uL (4.3-11.0)
[2020-05-24 06:36] LABS: CALCIUM, SERUM 8.9 mg/dL (8.5-10.1); CREATININE 0.9 mg/dL (0.6-1.3); POTASSIUM 4.7 mmol/L (3.5-5.1)
--- NOTE | 2020-05-24 06:41 | NUR ---
PT ON BED ASLEEP EASY TO WAKE UP A/O X3 STILL ON HIGH FLOW 30L 35% FIO2 AND NON SPO2 97% NO DISTRESS NOTED NO PAIN COMPLAINED NO SIGNIFICANT CHANGES ON CONDITION NOTED ALL NEEDS ATTENDED BED ON LOWEST POSITION AND LOCKED SIDE RAILS UP X2 CALL LIGHT WITHIN REACH WILL ENDORSED TO AM SHIFT NURSE
--- NOTE | 2020-05-24 07:30 | NUR ---
RN OPENING NOTE RECEIVED PATIENT IN BED RESTING ALERT ORIENTED X4 VERBALLY RESPONSIVE ABLE TO MAKE NEEDS KNOWN,ON MONITOR FOR COVID POSITIVE DROPLET/CONTACT ISOLATION,ON HIGH FLOW OXYGEN 30L FIO2: 35% O2: 97% IV SITE IS ON RIGHT AC INTACT PATENT, CONTINENT BOWEL/BLADDER CALL LIGHT WITHIN REACH,SAFETY MEASURE IMPLEMENT,BED IN LOW POSITION AND LOCKED,CONTINUE TO MONITOR AND PROVIDE TREATMENT
[2020-05-24] MEDS: ENOXAPARIN SODIUM 40 MG/0.4 ML DISP.SYRIN SQ SCH ×2 (08:36→20:17)
[2020-05-24] MEDS: ENSURE ENLIVE 237 ML LIQUID (VANILLA) PO SCH ×3 (08:37→17:12)
[2020-05-24] MEDS: DEXAMETHASONE SOD PHOSPHATE 10 MG/ML VIAL IV SCH (08:37)
[2020-05-24] MEDS: LOSARTAN POTASSIUM 50 MG TABLET PO SCH (08:44)
[2020-05-24] MEDS: AMLODIPINE BESYLATE 10 MG TABLET PO SCH (08:44)
[2020-05-24 10:00] VITALS: BP 103/67
[2020-05-24 12:00] VITALS: BP 105/61
[2020-05-24 16:00] VITALS: BP 106/70
--- NOTE | 2020-05-24 18:37 | NUR ---
RN CLOSING NOTE RECEIVED PATIENT IN BED RESTING ALERT ORIENTED X4 VERBALLY RESPONSIVE ABLE TO MAKE NEEDS KNOWN,ON MONITOR FOR COVID POSITIVE DROPLET/CONTACT ISOLATION. PATIENT TITRATED DOWN THROUGHOUT THE SHIFT. CURRENTLY PATIENT IS ON ROOM AIR O2: 94% PATIENT DESATURATES DOWN DURING EXERTION BUT REFUSES O2 THERAPY IN HOPES OF GOING HOME TOMORROW. AT REST, PATIENT IS STABLE IN 90S. TURNING COUGHING/REPOSITIONING, DECREASES DOWN TO 85% THEN BACK UP. IV SITE IS ON RIGHT AC INTACT PATENT, CONTINENT BOWEL/BLADDER CALL LIGHT WITHIN REACH,SAFETY MEASURE IMPLEMENT,BED IN LOW POSITION AND LOCKED. WILL ENDORSE TO DISCHARGE DOOR OPERATOR NURSE FOR IRIS.
--- NOTE | 2020-05-24 19:46 | NUR ---
RN NOTE RECEIVED IN BED, ALERT AND ORIENTED X4. ABLE TO COMMUNICATE NEEDS. O2 SAT AT 90 % ON ROOM AIR, PT DENIES ANY SOB. OFFERED OXYGEN, PT REFUSED. VERBALIZES SHE FEELS FINE. NO RESP DISTRESS NOTED. ON TELE MONITORING SHOWS SR WITH HR OF 66. RAC IV PATENT AND INTACT, FLUSHED. NO SIGNS OF INFECTION NOTED. ALL SAFETY MEASURES IMPLEMENTED PER PROTOCOL. BED LOCKED IN LOWEST POSITION. CALL LIGHT WITHIN REACH. SIDE RAILS UP. WILL CONTINUE TO MONITOR.
[2020-05-24 20:00] VITALS: BP 132/69
[2020-05-25] VITALS: BP 125/57
--- NOTE | 2020-05-25 01:30 | NUR ---
RN NOTE PT SLEEPING, EASILY AROUSABLE BY VERBAL STIMULI. NO DISTRESS NOTED. O2 SAT AT 94 %. WILL CONTINUE TO MONITOR.
[2020-05-25 04:00] VITALS: BP 106/64
--- NOTE | 2020-05-25 06:44 | NUR ---
RN CLOSING NOTE PT REMAIN STABLE. TOLERATING ROOM AIR. O2 SAT AT 93 %. DENIES ANY SOB ALL SHIFT. NO RESP DISTRESS NOTED. TELE MONITOR SHOWS SINUS RHYTHM WITH HR OF 63. IV REMAIN PATENT AND INTACT, NO SIGNS OF INFECTION. PT ABLE TO MAKE NEEDS KNOWN, DENIES PAIN. ASSISTED ON NEEDS PT ABLE TO USE BEDSIDE COMMODE WITH STAND BY ASSIST. CALL LIGHT WITHIN REACH AT ALL TIMES. WILL ENDORSE TO NEXT SHIFT NURSE FOR IRIS.
[2020-05-25 07:19] LABS: BASOPHILS % (AUTO) 0.5 % (0.0-2.0); EOSINOPHILS % (AUTO) 0.8 % (0.0-6.0); HEMATOCRIT 40 % (33-45); HEMOGLOBIN 13.4 g/dL (11.5-14.8); LYMPHOCYTES # (AUTO) 1.6 /CMM (0.8-4.8); LYMPHOCYTES % (AUTO) 16.8 % (20.0-44.0); MEAN CORPUSCULAR HGB CONC 33 g/dl (31.0-36.0); MEAN CORPUSCULAR VOLUME 91 fL (82-100); MONOCYTES # (AUTO) 0.9 /CMM (0.1-1.30); MONOCYTES % (AUTO) 9.5 % (2.0-12.0); NEUTROPHILS # (AUTO) 6.8 /CMM (1.8-8.9); NEUTROPHILS % (AUTO) 72.4 % (43.0-81.0); PLATELET COUNT (AUTO) 278 /CMM (150-450); RED BLOOD CELL COUNT(AUTO) 4.43 MIL/uL (4.0-5.2); WHITE BLOOD COUNT (AUTO) 9.3 K/uL (4.3-11.0)
--- NOTE | 2020-05-25 07:45 | NUR ---
RN OPENING NOTE PATIENT IS IN BED WITH HOB AT SEMI FOWLERS POSITION. PATIENT IS AOX4 ON ROOM AIR WITH NO SIGNS OF LABORED BREATHING. SKIN IS INTACT. RAC#18 IS PATENT, INTACT, AND HAS NO SIGNS OF INFILTRATION. BED IS LOCKED IN THE LOWEST POSITION, CALL NATARAJAN WITHIN REACH, 3 GUARD RAILS RAISED, AND ALL HOSPITAL SAFETY PRECAUTIONS ARE BEING FOLLOWED. WILL CONTINUE TO MONITOR THROUGHOUT SHIFT.
[2020-05-25 08:00] VITALS: BP 141/71
[2020-05-25] MEDS: ENSURE ENLIVE 237 ML LIQUID (VANILLA) PO SCH ×2 (08:00→13:00)
[2020-05-25 08:36] LABS: POTASSIUM 4.6 mmol/L (3.5-5.1)
[2020-05-25] MEDS: AMLODIPINE BESYLATE 10 MG TABLET PO SCH (09:04)
[2020-05-25] MEDS: DEXAMETHASONE SOD PHOSPHATE 10 MG/ML VIAL IV SCH (09:05)
[2020-05-25] MEDS: LOSARTAN POTASSIUM 50 MG TABLET PO SCH (09:05)
[2020-05-25] MEDS: ENOXAPARIN SODIUM 40 MG/0.4 ML DISP.SYRIN SQ SCH (09:07)
[2020-05-25] MEDS ORDERED: APIX2.5T PO (10:01)
[2020-05-25 12:00] VITALS: BP 111/56
--- NOTE | 2020-05-25 13:45 | NUR ---
SENIOR LOGISTICS MANAGER NOTE DISCHARGED PATIENT TO VIA WHEELCHAIR. PATIENT IS STABLE ON ROOM AIR. ALL VENOUS LINES HAVE BEEN REMOVED. ALL BELONGINGS ARE WITH PATIENT. DISCHARGE INSTRUCTIONS ARE WITH PATIENT.
== END 2020-05-25 13:48 | disposition home health service (06) | DRG 177 ==
LOC: ER 16:03 → TRANSITION 19:02 → TELE-TD 05-16 10:51 → TELE1 05-16 12:07
PROVIDERS: ATTEND Family Medicine
PROC: XW033E5 Introduction of Remdesivir Anti-infective into Peripheral Vein, Percutaneous Approach, New Technology Group 5 (ICD-10-PCS; principal; 2020-05-15)
DX: U07.1 COVID-19 (principal); J12.82 Pneumonia due to coronavirus disease 2019; J96.01 Acute respiratory failure with hypoxia; N17.0 Acute kidney failure with tubular necrosis; E43 Unspecified severe protein-calorie malnutrition; I10 Essential (primary) hypertension; E66.9 Obesity, unspecified; Z96.653 Presence of artificial knee joint, bilateral; Z98.890 Other specified postprocedural states; Z79.899 Other long term (current) drug therapy; Z68.29 Body mass index [BMI] 29.0-29.9, adult; M17.0 Bilateral primary osteoarthritis of knee; E88.09 Other disorders of plasma-protein metabolism, not elsewhere classified
CPT/HCPCS: 36415; 36600; 71045-TC; 80048-TC; 80061-TC; 80076-TC; 82550-TC; 82728-TC; 82803-TC; 83605-TC; 83615-TC; 83735-TC; 83880; 84100-TC; 84443-TC; 84484-TC; 85025-TC; 85378-TC; 85385-TC; 85610-TC; 85730-TC; 86140-TC; 87040-TC; 87081-TC; 93308-TC; 94760-TC; 94799-TC; A4216; A4217; C9803; G0378; J0456; J0696; J1100; J1650; J7030; J7050; J7060; Q9967; U0003